=== PATIENT | male | born 1965 | race Hispanic/Latino ===

== ENCOUNTER 2022-02-24 07:58 | Day surgery (SDC) | payer MEDICARE ==
[~2022-02-24 07:58] MED LIST: SODIUM CHLORIDE 0.9% 1000 ML 1,000 ML IV SCH
--- NOTE | 2022-02-24 09:12 | Anesthesia Day of Surgery ---
Anesthesia Day of Surgery - Day of Surgery Patient Examined: Yes Patient H&P Reviewed: Yes Patient is NPO: Yes
--- NOTE | 2022-02-24 09:13 | Anesthesia Consultation ---
Anesthesia Consult and Med Hx Date of service: 02/24/22 - Airway Anesthetic Teeth Evaluation: Edentulous ROM Head & Neck: Adequate Mental/Hyoid Distance: Adequate Mallampati Class: Class II Intubation Access Assessment: Good - Pre-Operative Health Status ASA Pre-Surgery Classification: ASA2 Proposed Anesthetic Plan: MAC - Pulmonary Hx Smoking: No Hx Sleep Apnea: No - Central Nervous System Hx Psychiatric Problems: Yes (Mentally challenged) - Gastrointestinal Hx Gastroesophageal Reflux Disease: No - Other Systems Hx Alcohol Use: No Hx Obesity: No
[2022-02-24] MEDS ORDERED: LIDOCAINE MPF (2%) 20 MG/1 ML VIAL 5 ML ONE (10:18)
[2022-02-24] MEDS ORDERED: propofoL 200 MG/20 ML VIAL IV ONE (10:19)
--- NOTE | 2022-02-24 10:49 | Procedure Note ---
Date of procedure: 02/24/22 Pre-op diagnosis: Colon Polyp Screening/ F/H/O Colon Polyps ( father) Post-op diagnosis: other (No Colon Polyps noted/ Extensive, Deep Left Colon Diverticular Disease/ No Internal Hemorrhoids noted) Procedure: Colonoscopy Anesthesia: MAC Surgeon: CLEMENTE COON Estimated blood loss: none Pathology: none Condition: stable Disposition: same day (Encourage fiber intake; resume previous medication nd F/U in 1 to 3 weeks [phone]).)
--- NOTE | 2022-02-24 11:12 | Post Anesthesia Evaluation ---
- Post Anesthesia Evaluation Patient Participated: Yes Airway Patent: Yes Stable Respiratory Function: Yes Nausea/Vomiting: No Temp > 96.8F: Yes Pain Manageable: Yes Adequeate Hydration: Yes Anesthesia Complications: No Block Receding Appropriately: Not Applicable Patient on Ventilator: No
--- NOTE | 2022-02-24 11:30 | Operative Report ---
DATE OF SURGERY: 02/24/2022 PROCEDURE PERFORMED: Colonoscopy. INDICATIONS: This is a 57-year-old white male with history of mental retardation, family history of colon polyps. The patient's father had colon polyps. Colonoscopy was done as part of colon polyp screening. DESCRIPTION OF PROCEDURE: Procedure was done after getting informed consent with MAC anesthesia. Initial rectal examination was unremarkable. The instrument was passed through the rectum onto the cecum, which was identified with ileocecal valve and appendiceal orifice. Visualization was good. Cecum, ascending colon, transverse colon showed normal mucosa. There was moderately deep and extensive diverticular disease noted in the left colon. The rectum did not show any internal hemorrhoid on the retroverted view. ASSESSMENT: Colon polyp screening, family history of colon polyps. The patient's father had colon polyps. No colon polyps noted. Extensive deep left colon diverticular disease. No internal hemorrhoids. The patient is encouraged to increase his fiber intake and take fiber supplements like Metamucil, otherwise resume previous medication and follow up in the office in 1-2 weeks' time. Procedure was done in the GI lab with assistance of the GI lab team, which included the GI nurse, the electroencephalograph technologist and with assistance of Anesthesia. TID: [id number] RECEIPT: [id number] BARTOLOME
[2022-02-24 15:21] VITALS: BP 121/64
== END 2022-02-24 11:20 | disposition home or self-care (01) ==
LOC: GIO 07:58
DX: Z12.11 Encounter for screening for malignant neoplasm of colon (principal); K57.30 Diverticulosis of large intestine without perforation or abscess without bleeding; Z83.71 Family history of colonic polyps
CPT/HCPCS: G0105; J2704; J7030